=== PATIENT | female | born 2005 | race African-American/Black ===

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

== ENCOUNTER 2023-05-19 14:20 | Emergency (ER) | payer OTHER ==
[~2023-05-19] VITALS: Ht 165.1 cm; Wt 100.0 kg
[2023-05-19 14:24] VITALS: TEMP 98.6
[2023-05-19] MEDS ORDERED: FLUC150T61 PO (15:17)
[2023-05-19] MEDS ORDERED: METR500 PO (17:37)
[2023-05-19 17:42] VITALS: BP 133/78; PULSE 87; RESP 16
== END 2023-05-19 17:43 | disposition home or self-care (01) ==
LOC: EMS 14:20
DX: N76.0 Acute vaginitis (principal); Z90.49 Acquired absence of other specified parts of digestive tract
CPT/HCPCS: 87210; 99281; Z7502

== ENCOUNTER 2023-06-28 09:31 | Emergency (ER) | payer OTHER ==
[~2023-06-28] VITALS: Ht 165.1 cm; Wt 97.7 kg
[~2023-06-28 09:31] MED LIST changes: +METR500 PO
[2023-06-28 09:37] VITALS: TEMP 98.2
[2023-06-28 10:04] LABS: COVID AG,FIA SOURCE NASAL SWAB
[2023-06-28 10:27] LABS: RAPID GROUP A STREP NEGATIVE (NEGATIVE)
[2023-06-28 10:31] LABS: SARS-COV2 (COVID) ANTIGEN,FIA Negative (Negative)
[2023-06-28 10:33] LABS: INFLUENZA TYPE A NEGATIVE FOR TYPE A (NEGATIVE); INFLUENZA TYPE B NEGATIVE FOR TYPE B (NEGATIVE)
[2023-06-28] MEDS ORDERED: IBUP-1554 PO (10:53)
[2023-06-28] MEDS ORDERED: ACET-2080 PO (10:53)
[2023-06-28] MEDS ORDERED: MICO15CR9 VG (10:53)
[2023-06-28 11:16] VITALS: BP 122/73; PULSE 72; RESP 14
== END 2023-06-28 11:19 | disposition home or self-care (01) ==
LOC: EMS 09:31
DX: J02.8 Acute pharyngitis due to other specified organisms (principal); Z90.49 Acquired absence of other specified parts of digestive tract; Z20.822 Contact with and (suspected) exposure to COVID-19
CPT/HCPCS: 87430; 87804; 99282; Z7502